=== PATIENT | female | born 1955 | race Caucasian/White ===

== ENCOUNTER → 2020-03-22 | Outpatient (CLI) | payer MEDICARE, BC | LOC: M.WC 09:00 | PROVIDERS: ATTEND Family Medicine | DX: I89.0 Lymphedema, not elsewhere classified (principal); I87.323 Chronic venous hypertension (idiopathic) with inflammation of bilateral lower extremity; E66.01 Morbid (severe) obesity due to excess calories; H26.9 Unspecified cataract; J45.909 Unspecified asthma, uncomplicated; Z68.43 Body mass index [BMI] 50.0-59.9, adult; Z90.710 Acquired absence of both cervix and uterus; Z86.718 Personal history of other venous thrombosis and embolism; Z90.49 Acquired absence of other specified parts of digestive tract ==

== ENCOUNTER → 2020-03-27 | Outpatient (CLI) | payer MEDICARE, BC ==
--- NOTE | 2020-03-27 16:41 | 2DMMODE ---
[place] [address] 2 D/M-MODE ECHOCARDIOGRAM Name: BRENTON SPANN Room: [facility]#: [id number] Admission: 03/27/20 Attend Phys: Dottie Thibodeaux, Discharge: Date of : 53 Date of Service: 03/27/20 1641 Report #: [id number] THIS REPORT FOR: cc: David Rivera Russell J. DO Liston, Michael J. MD [facility] ~ APPROVED REPORT Study performed: 03/27/2020 11:13:56 EXAM: Comprehensive 2D, Doppler, and color-flow Echocardiogram Patient Location: Out-Patient BSA: 2.54 HR: 75 bpm BP: 120/80 mmHg Other Information Study Quality: Fair Indications Chest Pain 2D Dimensions IVSd: 9.95 (7-11mm) LVOT Diam: 20.29 (18-24mm) LVDd: 51.70 mm PWd: 8.87 (7-11mm) Ascending Ao: 25.49 (22-36mm) LVDs: 28.77 (25-40mm) Aortic Root: 29.21 mm Volumes Left Atrial Volume (Systole) LA ESV Index: 21.10 mL/m2 Aortic Valve AoV Peak Hu.: 1.46 m/s AO Peak Gr.: 8.53 mmHg LVOT Max P.18 mmHg AO Mean Gr.: 4.71 mmHg LVOT Mean P.55 mmHg LVOT Max V: 0.89 m/s AO V2 VTI: 33.33 cm LVOT Mean V: 0.57 m/s RIYA (VTI): 2.10 cm2 LVOT V1 VTI: 21.65 cm Mitral Valve E/A Ratio: 0.92 [place] [address] 2 D/M-MODE ECHOCARDIOGRAM Name: BRENTON SPANN Room: [facility]#: [id number] Admission: 03/27/20 Attend Phys: Dottie Thibodeaux, Discharge: Date of : 53 Date of Service: 03/27/20 1641 Report #: [id number] MV Decel. Time: 194.76 ms MV E Max Hu.: 0.66 m/s MV PHT: 56.48 ms MVA (PHT): 3.90 cm2 TDI E/Lateral E': 6.60 E/Medial E': 8.25 Medial E' Hu.: 0.08 m/s Lateral E' Hu.: 0.10 m/s Pulmonary Valve PV Peak Hu.: 1.07 m/s PV Peak Gr.: 4.57 mmHg Tricuspid Valve RAP Estimate: 5.00 mmHg TR Peak Gr.: 22.49 mmHg RVSP: 27.49 mmHg PA Pressure: 27.49 mmHg Left Ventricle The left ventricle is normal size. There is normal LV segmental wall motion. There is normal left ventricular wall thickness. Left ventricular systolic function is grossly normal. LVEF is 55-60%. Grade I - abnormal relaxation pattern. Right Ventricle The right ventricle is normal size. The right ventricular systolic function is normal. Atria Left atrium is mildly dilated. The right atrium size is normal. Aortic Valve The aortic valve is normal in structure. No aortic regurgitation is present. There is no aortic valvular stenosis. Mitral Valve The mitral valve is normal in structure. There is no mitral valve regurgitation noted. No evidence of mitral valve stenosis. Tricuspid Valve The tricuspid valve is normal in structure. Mild tricuspid regurgitation. Pulmonic Valve Pulmonic valve is not well visualized. [place] [address] 2 D/M-MODE ECHOCARDIOGRAM Name: BRENTON SPANN Room: [facility]#: [id number] Admission: 03/27/20 Attend Phys: Dottie Thibodeaux, Discharge: Date of : 53 Date of Service: 03/27/20 1641 Report #: [id number] regurgitation. Great Vessels The aortic root is normal in size. IVC is normal in size and collapses >50% with inspiration. Pericardium There is no pericardial effusion. <Conclusion> The left ventricle is normal size. There is normal left ventricular wall thickness. Left ventricular systolic function is grossly normal. LVEF is 55-60%. Grade I - abnormal relaxation pattern. Left atrium is mildly dilated. IVC is normal in size and collapses >50% with inspiration. <ELECTRONICALLY SIGNED> By: Valente Chauhan MD, FACC 03/27/201640 40 40 Valente Chauhan MD, FACC /INF
== END ==
LOC: EDUNIT# 03-19 13:21 → M.CT 03-19 13:21 → M.LAB 08:30 → M.CRD 08:30 → M.CT 08:30 → M.ULTRA 08:30
PROVIDERS: ATTEND Internal Medicine
DX: I07.1 Rheumatic tricuspid insufficiency (principal); I89.0 Lymphedema, not elsewhere classified; I87.2 Venous insufficiency (chronic) (peripheral)

== ENCOUNTER → 2020-04-17 | Outpatient (CLI) | payer MEDICARE, BC ==
[~2020-04-17] VITALS: Ht 170.2 cm; Wt 172.7 kg
[2020-04-17 09:46] VITALS: BP 124/52
[2020-04-17 09:55] LABS: CREATININE 0.9 mg/dL (0.6-1.3)
[2020-04-17 10:37] VITALS: BP 123/53
[2020-04-17 11:41] VITALS: BP 107/60
[2020-04-17 13:50] VITALS: BP 102/56
--- NOTE | 2020-04-17 15:43 | EKG ---
[place] [address] ELECTROCARDIOGRAM REPORT Name: BRENTON SPANN Room: [facility]#: [id number] Admission: 04/17/20 Attend Phys: Dottie Thibodeaux, Discharge: Date of : 53 Date of Service: 04/17/20 1259 Report #: [id number] THIS REPORT FOR: //name// [facility] Test Date: 2020-04-17 Test Time: 12:59:19 Pat Name: BRENTON SPANN Department: Room: Gender: F Learning Operations Specialist: TERESA Richardson : 1955 Requested By: Toñito Chaparro Order Number: [id number] Sydni MD: Valente Chauhan Measurements Intervals [place] Rate: 73 P: -4 [place]: 143 QRS: 35 QRSD: 91 T: 50 QT: 422 QTc: 465 Interpretive Statements Sinus rhythm with sinus arrhythmia Baseline wander in lead(s) V5 No previous ECG available for comparison Electronically Signed On 04-17-2020 15:43:12 DIET THERAPIST by Valente Chauhan [email or web address] <ELECTRONICALLY SIGNED> By: Valente Chauhan MD, FACC 04/17/20 1543 1259 1259 Valente Chauhan MD, [facility] /EPI
== END ==
LOC: M.CT 09:01
PROVIDERS: Radiology Diagnostic Radiology; ATTEND Internal Medicine
DX: I49.8 Other specified cardiac arrhythmias (principal); I42.0 Dilated cardiomyopathy